=== PATIENT | male | born 1995 | race Caucasian/White ===

== ENCOUNTER 2024-06-11 20:50 | Emergency (ER) | payer OTHER ==
[~2024-06-11] VITALS: Ht 182.9 cm; Wt 100.0 kg
[2024-06-11 20:54] VITALS: TEMP 97.2
[2024-06-11 22:44] LABS: Trichomonas vaginalis (AMP) NOT DETECTED (NEGATIVE)
[2024-06-11 23:08] LABS: GC DNA AMPLIFICATION NEGATIVE (NEGATIVE)
[2024-06-11 23:52] VITALS: BP 132/67; O2SAT 97
== END 2024-06-12 00:18 | disposition home or self-care (01) ==
LOC: M ED 20:50
DX: R31.9 Hematuria, unspecified (principal)

== ENCOUNTER → 2025-03-24 | Outpatient (CLI) | payer OTHER | LOC: M RAD 11:27 | PROVIDERS: ATTEND Specialist | DX: R31.21 Asymptomatic microscopic hematuria (principal) ==